=== PATIENT | female | born 1975 | race Caucasian/White ===

== ENCOUNTER 2018-01-07 22:59 | Emergency (ER) | payer BC ==
[~2018-01-07] VITALS: Ht 160 cm; Wt 77.1 kg
[2018-01-07 23:47] VITALS: BP 184/98
[2018-01-07 23:48] LABS: BASOPHILS % (AUTO) 0.6 % (0.0-2.0); EOSINOPHILS % (AUTO) 0.4 % (0.0-3.0); HEMATOCRIT 47.3 % (37.0-47.0); HEMOGLOBIN 16.2 G/DL (12.0-16.0); LYMPHOCYTES % (AUTO) 12.7 % (20.0-45.0); MEAN CORPUSCULAR VOLUME 82 FL (80-99); MONOCYTES % (AUTO) 3.9 % (1.0-10.0); NEUTROPHILS % (AUTO) 82.4 % (45.0-75.0); PLATELET COUNT 223 K/UL (150-450); RED CELL DISTRIBUTION WIDTH 11.5 % (11.6-14.8); WHITE BLOOD COUNT 9.2 K/UL (4.8-10.8)
[2018-01-07 23:58] LABS: APPEARANCE,URINE CLEAR; BILIRUBIN, URINE NEGATIVE (NEGATIVE); COLOR,URINE PALE YELLOW; GLUCOSE, URINE (UA) 4+ (NEGATIVE); KETONES,URINE 3+ (NEGATIVE); LEUKOCYTE ESTERASE ,URINE NEGATIVE (NEGATIVE); NITRITE,URINE NEGATIVE (NEGATIVE); PH,URINE 6.5 (4.5-8.0); PROTEIN,URINE NEGATIVE (NEGATIVE); UROBILINOGEN,URINE NORMAL MG/DL (0.0-1.0)
[2018-01-08 00:07] LABS: ANION GAP 10 mmol/L (5-15); BLOOD UREA NITROGEN 18 mg/dL (7-18); CARBON DIOXIDE 28 MMOL/L (21-32); CHLORIDE 99 MMOL/L (98-107); CREATININE 0.7 MG/DL (0.55-1.30); POTASSIUM 3.9 MMOL/L (3.5-5.1); SODIUM 137 MMOL/L (136-145)
[2018-01-08 00:11] LABS: ALANINE AMINOTRANSFERASE 51 U/L (12-78); ALBUMIN 4.2 G/DL (3.4-5.0); ALKALINE PHOSPHATASE 116 U/L (46-116); ASPARTATE AMINO TRANSFERASE 26 U/L (15-37); BILIRUBIN,TOTAL 0.6 MG/DL (0.2-1.0)
--- NOTE | 2018-01-08 00:43 | Emergency Room Report ---
History of Present Illness General Chief Complaint: Abdominal Pain Source: Patient Present Illness HPI Patient presents with reports of nausea vomiting Reports that her blood glucose was elevated today Patient has recently been changed to insulin She feels very thirsty Denies any chest pain or shortness of breath Denies any back or flank pain Patient reports that she just wants to sleep is tired Denies any lower abdominal pain Denies any neck pain or photophobia Patient also reports that she has been eating more sweets than usual Also had some grapefruit juice earlier Allergies: Coded Allergies: No Known Allergies (Unverified , 01/07/18) Patient History Past Medical History: see triage record Pertinent Family History: none Last Menstrual Period: 12/07/2017 Now: No Reviewed Nursing Documentation: PMH: Agreed; PSxH: Agreed Nursing Documentation-PMH Past Medical History: No History, Except For Hx Diabetes: Yes Review of Systems All Other Systems: negative except mentioned in HPI Physical Exam Vital Signs Date Time Temp Pulse Resp B/P (MAP) Pulse Ox O2 Delivery O2 Flow Rate FiO2 01/07/18 23:02 98.2 89 16 145/81 97 Room Air 98.2 Sp02 EP Interpretation: reviewed, normal General Appearance: well appearing, no apparent distress Head: normocephalic, atraumatic Eyes: bilateral eye PERRL, bilateral eye EOMI ENT: hearing grossly normal, TMs + canals normal, uvula midline, dry mucus membranes Neck: full range of motion, supple, no meningismus, no bony tend Respiratory: lungs clear, normal breath sounds, no rhonchi, no respiratory distress, no retraction, no accessory muscle use Cardiovascular #1: normal peripheral pulses, regular rate, rhythm, no edema, no gallop, no JVD, no murmur Gastrointestinal: normal bowel sounds, non tender, soft, no mass, no organomegaly, non-distended, no guarding, no hernia, no pulsatile mass, no rebound Genitourinary: no CVA tenderness Musculoskeletal: normal inspection Neurologic: oriented x3, responsive, 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 tested, motor strength/ tone normal, sensory intact Psychiatric: mood/affect normal Skin: normal color, no rash, warm/dry, palpation normal Lymphatic: normal inspection, no adenopathy Medical Decision Making Diagnostic Impression: Primary Impression: Vomiting Additional Impression: Hyperglycemia ER Course Patient is complex with multiple differentials considered Provided IV hydration Glucose level was elevated therefore further hydration and insulin was given Patient has been drinking water in the ER without any signs of vomiting Abdomen remains soft I did want to have further intervention with further improvement of her glucose however the patient reports that she wants to go home and sleep That she has to go to work tomorrow Patient also appears to have appropriate outpatient resources and follow-up There are no signs of any acidosis and the blood work and patient stable for close follow-up Labs Test 01/07/18 23:43 01/07/18 23:45 White Blood Count 9.2 K/UL (4.8-10.8) Red Blood Count 5.80 M/UL (4.20-5.40) Hemoglobin 16.2 G/DL (12.0-16.0) Hematocrit 47.3 % (37.0-47.0) Mean Corpuscular Volume 82 FL (80-99) Mean Corpuscular Hemoglobin 28.0 PG (27.0-31.0) Mean Corpuscular Hemoglobin Concent 34.3 G/DL (32.0-36.0) Red Cell Distribution Width 11.5 % (11.6-14.8) Platelet Count 223 K/UL (150-450) Mean Platelet Volume 8.2 FL (6.5-10.1) Neutrophils (%) (Auto) 82.4 % (45.0-75.0) Lymphocytes (%) (Auto) 12.7 % (20.0-45.0) Monocytes (%) (Auto) 3.9 % (1.0-10.0) Eosinophils (%) (Auto) 0.4 % (0.0-3.0) Basophils (%) (Auto) 0.6 % (0.0-2.0) Sodium Level 137 MMOL/L (136-145) Potassium Level 3.9 MMOL/L (3.5-5.1) Chloride Level 99 MMOL/L (98-107) Carbon Dioxide Level 28 MMOL/L (21-32) Anion Gap 10 mmol/L (5-15) Blood Urea Nitrogen 18 mg/dL (7-18) Creatinine 0.7 MG/DL (0.55-1.30) Estimat Glomerular Filtration Rate > 60 mL/min (>60) Glucose Level 314 MG/DL (74-106) Calcium Level 9.0 MG/DL (8.5-10.1) Total Bilirubin 0.6 MG/DL (0.2-1.0) Aspartate Amino Transf (AST/SGOT) 26 U/L (15-37) Alanine Aminotransferase (ALT/SGPT) 51 U/L (12-78) Alkaline Phosphatase 116 U/L (46-116) Troponin I 0.000 ng/mL (0.000-0.056) Total Protein 8.5 G/DL (6.4-8.2) Albumin 4.2 G/DL (3.4-5.0) Globulin 4.3 g/dL Albumin/Globulin Ratio 1.0 (1.0-2.7) Lipase 176 U/L (73-393) Serum Alcohol < 3 mg/dL Urine Color Pale yellow Urine Appearance Clear Urine pH 6.5 (4.5-8.0) Urine Specific [place] 1.010 (1.005-1.035) Urine Protein Negative (NEGATIVE) Urine Glucose (UA) 4+ (NEGATIVE) Urine Ketones 3+ (NEGATIVE) Urine Occult Blood 2+ (NEGATIVE) Urine Nitrite Negative (NEGATIVE) Urine Bilirubin Negative (NEGATIVE) Urine Urobilinogen Normal MG/DL (0.0-1.0) Urine Leukocyte Esterase Negative (NEGATIVE) Urine RBC 0-2 /HPF (0 - 2) Urine WBC 0 /HPF (0 - 2) Urine Squamous Epithelial Cells Few /LPF (NONE/OCC) Urine Bacteria None /HPF (NONE) Urine HCG, Qualitative Negative (NEGATIVE) Urine Opiates Screen Negative (NEGATIVE) Urine Barbiturates Screen Negative (NEGATIVE) Phencyclidine (PCP) Screen Negative (NEGATIVE) Urine Amphetamines Screen Negative (NEGATIVE) Urine Benzodiazepines Screen Negative (NEGATIVE) Urine Cocaine Screen Negative (NEGATIVE) Urine Marijuana (THC) Screen Negative (NEGATIVE) Last Vital Signs Date Time Temp Pulse Resp B/P (MAP) Pulse Ox O2 Delivery O2 Flow Rate FiO2 01/07/18 23:47 98.2 106 17 184/98 99 Room Air 98.2 Status: improved Disposition: HOME, SELF-CARE Condition: Improved Scripts Ondansetron Odt* (ZOFRAN ODT*) 4 Mg Tab.rapdis 4 MG ORAL Q6H PRN for Nausea & Vomiting, #12 TAB 0 Refills Prov: Fina Troy DO 01/08/18 Referrals: NON PHYSICIAN (PCP) Additional Instructions: Patient is provided with the discharge instructions notified to follow up with primary doctor in the next 2-3 days otherwise return to the er with any worsening symptoms. Please note that this report is being documented using [employer] technology. This can lead to erroneous entry secondary to incorrect interpretation by the dictating instrument. Fina Troy DO Jan 08, 2018 00:43
[2018-01-08] MEDS ORDERED: ZOFRAN ODT4 MG ORAL (01:02)
[2018-01-08 01:23] VITALS: BP 184/98
== END 2018-01-08 01:20 | disposition home or self-care (01) ==
LOC: EMR 23:05
DX: R11.2 Nausea with vomiting, unspecified (principal); E11.65 Type 2 diabetes mellitus with hyperglycemia
CPT/HCPCS: 36415; 80053; 80307; 81003; 81025; 82962; 83690; 84484; 85025; 96374; 96375; 99284; G0480; J1815; 80329